=== PATIENT | female | born 1985 | race Caucasian/White ===

== ENCOUNTER 2024-06-15 07:16 | Day surgery (SDC) | payer OTHER ==
[~2024-06-15] VITALS: Ht 172.7 cm; Wt 104.3 kg
[2024-06-15 07:38] VITALS: O2SAT 99
[2024-06-15 07:45] LABS: HCG,QUAL RESULT NEGATIVE (NEGATIVE)
[2024-06-15] MEDS ORDERED: fentaNYL CITRATE/PF 100 MCG/2 ML AMP ONE (07:49)
[2024-06-15] MEDS ORDERED: MIDAZOLAM HCL 5 MG/5 ML VIAL ONE (07:49)
[2024-06-15 13:40] VITALS: BP_SYST 108; PULSE 66; RESP 17
== END 2024-06-15 09:52 | disposition home or self-care (01) ==
LOC: SMU 07:16 → SDS 07:16
PROVIDERS: ATTEND Internal Medicine
DX: K92.1 Melena (principal); K62.89 Other specified diseases of anus and rectum; K57.30 Diverticulosis of large intestine without perforation or abscess without bleeding; K64.8 Other hemorrhoids; Z98.891 History of uterine scar from previous surgery; Z98.51 Tubal ligation status; Z90.49 Acquired absence of other specified parts of digestive tract; Z80.0 Family history of malignant neoplasm of digestive organs
CPT/HCPCS: 45330; 84703; 99152; G0378; J2250; J3010; G0104